=== PATIENT | female | born 1995 | race Caucasian/White ===

== ENCOUNTER 2022-12-08 00:47 | Inpatient (IN) ==
[2022-12-08 02:09] LABS: ABS Lymphocytes 0.9 10^3/ul (1.0-4.8); ABS Monocytes 0.8 10^3/ul (0-0.8); ABS Neutrophils 15.4 10^3/ul (1.5-7.7); Eosinophil % 0.2 %; Hematocrit 43 % (35-47); Hemoglobin 13.3 g/dL (12.0-16.0); Mean Corpuscular HGB Conc 31 g/dL (31-36); Mean Corpuscular Hemoglobin 27 pg (27-31); Mean Corpuscular Volume 88 fL (80-97); Mean Platelet Volume 9.7 fL (7.4-10.4); Platelet Count 192 10^3/uL (150-450); Red Blood Count 4.91 10^6 /uL (3.70-4.87); Red Cell Distribution Width 15 % (10-15); White Blood Count 17.1 10^3/uL (3.5-10.8)
[2022-12-08] MEDS ORDERED: Lactated Ringers 1000 ml BAG 1,000 ML IV ONE (02:24)
[2022-12-08] MEDS ORDERED: Buffered Lidocaine 1% SYRIN 1 ml INTRADERM ONE (02:24)
[2022-12-08] MEDS ORDERED: Glycerin ADULT 2.4 gm SUPP PR PRN (02:34)
[2022-12-08] MEDS ORDERED: Lidocaine 1% VIAL 10 MG/ML VIAL 30 ML ONE (02:56)
[2022-12-08] MEDS ORDERED: Lactated Ringers 1000 ml BAG 1,000 ML IV SCH ×2 (03:00)
[2022-12-08] MEDS: Witch Hazel PAD JAR TOPICAL PRN (04:25)
[2022-12-08] MEDS: Dibucaine 1% OINT 28.35 GM TUBE PR PRN (04:25)
[2022-12-08] MEDS: Ibuprofen ADULT LIQ 600 MG/30 ML UDC PO SCH ×3 (09:35→23:34)
[2022-12-09] MEDS: Ibuprofen ADULT LIQ 600 MG/30 ML UDC PO SCH ×2 (06:32→12:59)
[2022-12-09 06:57] LABS: ABS Lymphocytes 1.1 10^3/ul (1.0-4.8); ABS Monocytes 0.6 10^3/ul (0-0.8); Eosinophil % 0.4 %; Hematocrit 31 % (35-47); Hemoglobin 10.2 g/dL (12.0-16.0); Lymphocyte % 13.9 %; Mean Corpuscular HGB Conc 33 g/dL (31-36); Mean Corpuscular Hemoglobin 28 pg (27-31); Mean Corpuscular Volume 84 fL (80-97); Mean Platelet Volume 9.3 fL (7.4-10.4); Platelet Count 172 10^3/uL (150-450); Red Blood Count 3.63 10^6 /uL (3.70-4.87); Red Cell Distribution Width 14 % (10-15); White Blood Count 7.8 10^3/uL (3.5-10.8)
[2022-12-09 08:08] VITALS: BP 94/48
[2022-12-09] MEDS: Witch Hazel PAD JAR TOPICAL PRN (14:36)
[2022-12-09] MEDS: Dibucaine 1% OINT 28.35 GM TUBE PR PRN (14:36)
== END 2022-12-09 15:49 | disposition home or self-care (01) | DRG 560 ==
LOC: MCHOBOUT 00:47 → MCHOB 01:11
PROVIDERS: ADMIT Obstetrics & Gynecology; ATTEND Obstetrics & Gynecology